=== PATIENT | female | born 1990 | race African-American/Black ===

== ENCOUNTER 2020-05-08 13:04 | Outpatient (CLI) | payer OTHER, SELFPAY ==
--- NOTE | 2020-05-08 13:12 | ECG_ITS ---
Measurements Intervals [place] Rate: 45 P: 31 WV: 123 QRS: 76 QRSD: 78 T: 39 QT: 432 QTc: 376 Interpretive Statements SINUS BRADYCARDIA ABNORMAL ECG Electronically Signed On 05-08-2020 13:48:12 [employer] by Van Gallo D.O.
== END 2020-05-08 13:05 | disposition home or self-care (01) ==
PROVIDERS: PCP Family Medicine; Visit Provider Physician Assistant
DX: R55 Syncope and collapse (principal); R94.31 Abnormal electrocardiogram [ECG] [EKG]
CPT/HCPCS: 93005

== ENCOUNTER → 2020-05-13 08:18 | Outpatient (CLI) | payer OTHER, SELFPAY ==
--- NOTE | ~2020-05-13 | US_ITS ---
EXAMINATION: US abdomen limited DATE: 05/13/2020 08:49 INDICATION: Other specified abnormal findings of blood chemistry. Abnormal liver function tests. TECHNIQUE: Multiple grayscale and Doppler ultrasound images of the abdomen were obtained. COMPARISON: None FINDINGS: Abdominal aorta is normal in caliber. The visualized portions of the head, body, and tail o f the pancreas are normal. The liver is normal without focal lesion. No liver surface nodularity. The re is normal flow in main portal vein. The gallbladder is normal in size and contains gallstones. No gallbladder wall wall thickening or sonographic Swain sign. The common duct is normal and measures 3 mm. IMPRESSION: 1. Cholelithiasis. No evidence of acute cholecystitis. Reviewed, dictated and finalized at location B. [facility]
== END ==
PROVIDERS: PCP Family Medicine; Visit Provider Physician Assistant
DX: R79.89 Other specified abnormal findings of blood chemistry (principal); K80.20 Calculus of gallbladder without cholecystitis without obstruction
CPT/HCPCS: 76705

== ENCOUNTER 2020-05-14 13:35 | Outpatient (CLI) | payer OTHER, SELFPAY ==
--- NOTE | ~2020-05-14 | CT_ITS ---
EXAMINATION: CT brain wo con EXAM DATE: 05/14/2020 13:59 INDICATION: G44.309 - Post-traumatic headache, unspecified, not intracta . Syncope. TECHNIQUE: Spiral CT of the head was performed without contrast. Axial, coronal and sagittal images were reviewed. The dose-length product (DLP) for this examination was 605.33 mGy-cm. The exposure w as tailored according to patient size, and iterative reconstruction (ASIR) was used as additional dos e reduction technique. There is no prior study for comparison. FINDINGS: There is no acute intraparenchymal hemorrhage. No evidence of intraparenchymal brain mass lesion. No evidence of acute infarction. There is no mass effect or midline shift. The ventricles are normal in size. There are no extra-axial collections. There are no acute calvarial fractures. T he orbits are unremarkable. Soft tissue is unremarkable. The visualized sinuses and mastoid air raúl ls are well aerated. IMPRESSION: 1. Normal head CT examination. Reviewed, dictated and finalized at location A. [employer]
== END 2020-05-14 13:36 | disposition home or self-care (01) ==
PROVIDERS: PCP Family Medicine; Visit Provider Physician Assistant
DX: G44.309 Post-traumatic headache, unspecified, not intractable (principal); R55 Syncope and collapse
CPT/HCPCS: 70450

== ENCOUNTER → 2021-12-16 14:12 | Outpatient (CLI) | payer OTHER, SELFPAY ==
--- NOTE | ~2021-12-16 | US_ITS ---
EXAMINATION: US OB <= 14 weeks fetus INDICATION: Uncertain dates TECHNIQUE: Sonography of the pelvis was performed by transabdominal techniques. COMPARISON: None. RESULT: Uterus: - Orientation: Anteverted - Size: 11.5 x 6.1 x 7.6 cm - Myometrium: homogeneous echogenicity Gestation: - Intrauterine gestational sac: Not seen -- Yolk sac: 0.6 cm - Embryo: Single present - [place] rump length: 2.2 cm, corresponding gestational age 8 weeks, 6 days -Gestational heart rate: present 162 bpm -Subgestational hematoma: Absent Right ovary: - Size : 3.8 x 2.3 x 2.9 cm - Normal sonographic appearance with physiologic follicles. Left ovary: - Size: 2.2 x 1.3 x 2.6 cm - Normal sonographic appearance with physiologic follicles. Pelvis free fluid: None. IMPRESSION: Single, live intrauterine gestation. Estimated Gestational Age: 8 weeks, 6 days by crown rump length. ISAAK by ultrasound 07/22/2022. Reviewed, dictated and finalized at location K. IMPRESSION: Single, live intrauterine gestation. Estimated Gestational Age: 8 weeks, 6 days by crown rump length. ISAAK by ultras ound 07/22/2022.
== END ==
PROVIDERS: PCP Physician Assistant; Visit Provider Advanced Practice Midwife
DX: Z36.87 Encounter for antenatal screening for uncertain dates (principal); Z3A.08 8 weeks gestation of pregnancy
CPT/HCPCS: 76801

== ENCOUNTER → 2022-02-24 08:05 | Outpatient (CLI) | payer OTHER, SELFPAY ==
--- NOTE | ~2022-02-24 | US_ITS ---
EXAMINATION: US OB /maternal detail DATE: 02/24/2022 08:51 INDICATION: Second trimester anatomic survey TECHNIQUE: Real-time ultrasound of the pelvis was performed. COMPARISON: None. FINDINGS: There is a single living fetus in variable presentation. The placenta is anterior and 6.6 cm from the internal cervical os. The cervical length is 3.6 cm. heart rate is 147 beats per minute (bpm). cardiac activity and movement are noted. The amniotic fluid index is subjectively remedios l. The following anatomy was identified as normal: 4 chamber heart 3 vessel cord cord insertion kidneys urinary bladder stomach spine diaphragm ventricles cisterna magna cerebellum The following biometric data were obtained: Biparietal diameter (BPD): 4.4 cm; head circumference (HC): 16.2 cm; abdominal circumference (AC): 15 .2 cm; femur length (FL): 3.0 cm. Head circumference to abdominal circumference ratio is greater than two standard deviations below the mean. These measurements are concordant. Estimated weight is 312 g +/- 46 g, which correlates with the 92nd percentile when 07/22/2022 is used as estimated date of delivery. As single measurements, these parameters are each equal to the following estimated gestational ages w ith ranges of +/- 2 standard deviations: BPD: 19 weeks 1 days ( 17 weeks 3 days - 20 weeks 6 days). HC: 19 weeks 0 days ( 17 weeks 3 days - 20 weeks 3 days). AC: 20 weeks 3 days ( 18 weeks 2 days - 22 weeks 3 days). FL: 19 weeks 2 days ( 17 weeks 3 days - 21 weeks 1 days). estimated gestational age based solely on measurements from this exam is 19 weeks 3 days +/- 1 weeks 3 days. IMPRESSION: 1. Single living fetus in variable presentation. 2. Estimated weight is 312 g +/- 46 g, which correlates with the 92nd percentile when 07/22/2022 is used as estimated date of delivery. 3. Head circumference to abdominal circumference ratio greater than two standard deviations below the mean. Reviewed, dictated and finalized at location B. IMPRESSION: 1. Single living fetus in variable presentation. 2. Estimated weight is 312 g +/- 46 g, which correlates with the 92nd per centile when 07/22/2022 is used as estimated date of delivery. 3. Head circumference to abdominal circumference ratio greater than two standar d deviations below the mean.
== END ==
PROVIDERS: PCP Family Medicine; Visit Provider Advanced Practice Midwife
DX: Z36.9 Encounter for antenatal screening, unspecified (principal)
CPT/HCPCS: 76805